=== PATIENT | male | born 1990 | race Caucasian/White ===

== ENCOUNTER 2019-07-03 20:33 | Emergency (ER) | payer OTHER ==
[~2019-07-03] VITALS: Ht 175.3 cm; Wt 78.0 kg
[~2019-07-03 20:33] MED LIST: PROSUD; QNASL80 MCG/Act INH; [UNRECOGNIZED DRUG - CODE]
[2019-07-03 20:35] VITALS: BP 135/87; Ht 175.3 cm; Wt 78.0 kg
== END 2019-07-03 21:52 | disposition home or self-care (01) ==
LOC: ED 20:33
DX: K02.9 Dental caries, unspecified (principal); J45.909 Unspecified asthma, uncomplicated
CPT/HCPCS: J0696; J1885

== ENCOUNTER 2019-08-27 12:02 | Emergency (ER) | payer OTHER ==
[~2019-08-27] VITALS: Ht 175.3 cm; Wt 79.8 kg
[2019-08-27 12:07] VITALS: Ht 175.3 cm; Wt 79.8 kg
[2019-08-27 14:52] LABS: BASOPHIL % 0.2 % (0-2); PLATELET COUNT 335 x10^3mcL (130-400); RED CELL DISTRIBUTION WIDTH 14.2 % (11.5-14.5)
[2019-08-27 14:58] LABS: CALCIUM 8.3 mg/dL (8.5-10.1); CARBON DIOXIDE 29.9 mmol/L (21-32); CHLORIDE SERUM 99 mmol/L (98-107); CREATININE SERUM 0.9 mg/dL (0.7-1.3); GFR1 > 60 mL/min; GLUCOSE SERUM 97 mg/dL (74-106); POTASSIUM SERUM 3.8 mmol/L (3.5-5.1); SODIUM SERUM 135 mmol/L (136-145)
[2019-08-27 15:03] LABS: ALBUMIN 3.3 g/dL (3.4-5.0); ALKALINE PHOSPHATASE 79 U/L (46-116); ALT/SGPT 17 U/L (16-63); AST/SGOT 12 U/L (15-37); BILIRUBIN TOTAL 0.6 mg/dL (0.20-1.00)
[2019-08-27 21:17] VITALS: BP 120/760
== END 2019-08-27 19:30 | disposition short-term general hospital (02) ==
LOC: ED 12:02
PROVIDERS: Emergency Medicine
DX: L03.211 Cellulitis of face (principal); K12.2 Cellulitis and abscess of mouth
CPT/HCPCS: J1885; J2270; J2543; J7030; Q9967

== ENCOUNTER 2019-09-04 23:15 | Emergency (ER) | payer OTHER ==
[~2019-09-04] VITALS: Ht 175.3 cm; Wt 77.6 kg
[2019-09-04 23:50] VITALS: BP 113/66; Ht 175.3 cm; Wt 77.6 kg
== END 2019-09-05 01:05 | disposition home or self-care (01) ==
LOC: ED 23:15
DX: L02.01 Cutaneous abscess of face (principal); J45.909 Unspecified asthma, uncomplicated